=== PATIENT | female | born 1940 | race African-American/Black ===

== ENCOUNTER 2018-07-22 16:00 | Inpatient (IN) | payer MEDICARE ==
[~2018-07-22] VITALS: Ht 165.1 cm; Wt 51.9 kg
[2018-07-22] MEDS ORDERED: SODIUM CHLORIDE 0.9% 1,000 ML IV ONE (16:30)
[2018-07-22] MEDS ORDERED: ASPIRIN 325MG TABLET PO ONE (17:00)
[2018-07-22 17:17] LABS: BASOPHILS % 1.2 % (0.0-2.0); EOSINOPHILS % 0.6 % (0.0-5.0); HEMATOCRIT. 34.2 % (36.0-48.0); HEMOGLOBIN. 11.2 g/dL (12.0-16.0); LYMPHOCYTES % 22.7 % (20.0-50.0); MEAN CORPUSCULAR HEMOGLOBIN 29.3 pg (28.0-32.0); MEAN CORPUSCULAR VOLUME 89.4 fL (81.0-99.0); MEAN PLATELET VOLUME 10.7 fl (7.4-10.4); MONOCYTES % 7.7 % (2.0-8.0); NEUTROPHILS % 67.8 % (40.0-76.0); PLATELET 190 x1000/uL (130-400); RED BLOOD CELL COUNT 3.82 mill/uL (4.2-5.4); RED CELL DISTRIBUTION WIDTH 13.3 % (11.6-14.6)
[2018-07-22 17:21] LABS: CHLORIDE 106 mEq/L (98-107)
[2018-07-22 17:27] LABS: PARTIAL THROMBOPLASTIN TIME 25.1 sec (23.4-31.0); PROTHROMBIN TIME 10.7 sec (9.6-11.0)
[2018-07-22] MEDS ORDERED: POTASSIUM CHLORIDE 20MEQ TABLET SR PO ONE (18:00)
[2018-07-22 22:00] VITALS: BP 157/104
[2018-07-22 22:40] VITALS: BP 174/65
[2018-07-22] MEDS ORDERED: DONE10TA43 PO (22:55)
[2018-07-22] MEDS ORDERED: MEMA10TA19 PO (22:55)
[2018-07-22] MEDS ORDERED: HYDR12.529 PO (22:55)
[2018-07-22] MEDS ORDERED: AMLODIPINE 5MG TABLET PO NR (23:45)
[2018-07-22] MEDS ORDERED: HYDRALAZINE 20MG/ML VIAL IV PRN (23:45)
[2018-07-23] VITALS: BP 149/56
[2018-07-23 04:00] VITALS: BP 143/56
[2018-07-23 07:54] LABS: EOSINOPHILS % 0.6 % (0.0-5.0); HEMATOCRIT. 36.8 % (36.0-48.0); HEMOGLOBIN. 11.9 g/dL (12.0-16.0); LYMPHOCYTES % 30.5 % (20.0-50.0); MEAN CORPUSCULAR HEMOGLOBIN 28.9 pg (28.0-32.0); MEAN CORPUSCULAR VOLUME 89.6 fL (81.0-99.0); MEAN PLATELET VOLUME 10.9 fl (7.4-10.4); NEUTROPHILS % 57.9 % (40.0-76.0); PLATELET 193 x1000/uL (130-400); RED BLOOD CELL COUNT 4.11 mill/uL (4.2-5.4); RED CELL DISTRIBUTION WIDTH 13.4 % (11.6-14.6)
[2018-07-23 07:57] LABS: CHLORIDE 110 mEq/L (98-107)
[2018-07-23 08:00] VITALS: BP 163/56
[2018-07-23 08:06] LABS: LDL CHOLESTEROL 83 mg/dL (5-100)
[2018-07-23 08:17] LABS: HDL CHOLESTEROL 81 mg/dL (40-59)
[2018-07-23] MEDS: LISINOPRIL 20MG TABLET PO SCH (09:19)
[2018-07-23] MEDS: FAMOTIDINE 20MG TABLET PO SCH (09:19)
[2018-07-23] MEDS: AMLODIPINE 5MG TABLET PO SCH (09:19)
[2018-07-23] MEDS: ASPIRIN 81MG TABLET PO SCH (09:20)
[2018-07-23] MEDS: ENOXAPARIN 40MG/0.4ML SYR SUBCUT SCH (09:20)
[2018-07-23 12:00] VITALS: BP 94/67
[2018-07-23] MEDS ORDERED: SIMETHICONE 80MG TABLET CHEW PO PRN (15:30)
[2018-07-23] MEDS ORDERED: DOCUSATE SODIUM 100MG CAPSULE PO PRN (15:30)
[2018-07-23] MEDS ORDERED: HYDROCODONE/ACETAMINOPHEN 5/325MG TABLET PO PRN (15:30)
[2018-07-23] MEDS ORDERED: DIPHENHYDRAMINE 50MG/ML VIAL IV PRN (15:30)
[2018-07-23] MEDS ORDERED: MAGNESIUM HYDROXIDE 400MG/5ML 30ML UDC PO PRN (15:30)
[2018-07-23 16:00] VITALS: BP_SYST 100; BP_SYST 104; BP_SYST 124; BP_DIAS 36; BP_DIAS 46; BP_DIAS 53
[2018-07-23] MEDS: LORAZEPAM 0.5MG TABLET PO PRN (16:59)
[2018-07-23 17:29] LABS: VITAMIN B12 SERUM 387 pg/mL (211-911)
[2018-07-23 20:00] VITALS: BP_SYST 109; BP_SYST 89; BP_DIAS 43; BP_DIAS 52
[2018-07-24] VITALS: BP 121/68
[2018-07-24 04:00] VITALS: BP 128/61
[2018-07-24 07:44] LABS: CHLORIDE 108 mEq/L (98-107)
[2018-07-24 07:45] LABS: HEMATOCRIT 33.6 % (36.0-48.0); HEMOGLOBIN 11.2 g/dL (12.0-16.0); MEAN CORPUSCULAR HEMOGLOBIN 29.7 pg (28.0-32.0); PLATELET 176 x1000/uL (130-400); RED BLOOD CELL COUNT 3.78 mill/uL (4.2-5.4); RED CELL DISTRIBUTION WIDTH 13.6 % (11.6-14.6)
[2018-07-24 08:00] VITALS: BP 146/57
[2018-07-24] MEDS: AMLODIPINE 5MG TABLET PO SCH (10:22)
[2018-07-24] MEDS: LISINOPRIL 20MG TABLET PO SCH (10:23)
[2018-07-24] MEDS: ASPIRIN 81MG TABLET PO SCH (10:23)
[2018-07-24] MEDS: ENOXAPARIN 40MG/0.4ML SYR SUBCUT SCH (10:32)
[2018-07-24] MEDS: FAMOTIDINE 20MG TABLET PO SCH (10:32)
[2018-07-24 11:56] LABS: T4 FREE 0.89 ng/dL (0.76-1.46)
[2018-07-24 12:00] VITALS: BP 114/48
[2018-07-24] MEDS: LORAZEPAM 0.5MG TABLET PO PRN (14:06)
[2018-07-24 16:00] VITALS: BP_SYST 112; BP_SYST 143; BP_SYST 145; BP_DIAS 48; BP_DIAS 53; BP_DIAS 58
[2018-07-24 18:49] VITALS: BP 145/58
== END 2018-07-24 20:47 | disposition home or self-care (01) | DRG 308 ==
LOC: ER 16:30 → 5WST 17:57 → ENRESERV 21:04
PROVIDERS: ADMIT Internal Medicine; ATTEND Internal Medicine
DX: I49.8 Other specified cardiac arrhythmias (principal); I50.33 Acute on chronic diastolic (congestive) heart failure; G91.9 Hydrocephalus, unspecified; E87.6 Hypokalemia; E86.0 Dehydration; D64.9 Anemia, unspecified; F03.90 Unspecified dementia, unspecified severity, without behavioral disturbance, psychotic disturbance, mood disturbance, and anxiety; I11.0 Hypertensive heart disease with heart failure; M19.90 Unspecified osteoarthritis, unspecified site; Z79.899 Other long term (current) drug therapy
CPT/HCPCS: 36415; 70551; 71045; 80048; 80061; 82533; 82607; 83880; 84439; 84443; 84481; 84484; 85027; 93005; 93306; 93880; 93970; 96360; 96361; 97162; 99285; J1200; J1650; J7030